=== PATIENT | female | born 1945 | race Caucasian/White ===

== ENCOUNTER 2016-06-07 20:03 | Day surgery (SDC) | payer MEDICARE ==
[2016-06-07] MEDS ORDERED: ONDANSETRON 4 MG/2ML 2 ML VIAL ONE (21:53)
[2016-06-07 22:24] LABS: ABSOLUTE NEUTROPHIL COUNT 10.7 K/mm3 (1.8-7.7); BASO % 0.1 % (0.2-1.0); EOS % 0.1 % (0.9-2.9); HEMATOCRIT 41.5 % (37.0-47.0); HEMOGLOBIN 13.8 gm/l (12.0-16.0); IMM NEUT # 0.1 K/mm3 (0-0.2); IMM NEUT% 0.4 % (0-1); LYMPH % 8.1 % (15-45); MEAN CELL VOLUME 95.6 fl (81.0-99.0); MEAN CORPUSCULAR HEMOGLOBIN 31.8 pg (27.0-31.0); MEAN CORPUSCULAR HGB CONC 33.3 g/dl (33.0-37.0); MEAN PLATELET VOLUME 10.2 fl (7.4-10.4); MONO # 0.5 (0.0-0.8); MONO % 3.7 % (4-12); NEUT % 87.6 % (43-75); PLATELET COUNT 237 K/mm3 (130-400); RED CELL DISTRIBUTION WIDTH 12.9 % (11.5-14.5)
[2016-06-07 22:48] LABS: ALB/GLOB RATIO 1.1 (>1.0); ALBUMIN 3.9 gm/dL (3.5-5.7); CALCIUM 10.1 mg/dL (8.6-10.3); MAGNESIUM 1.9 mg/dL (1.9-2.7)
[2016-06-07] MEDS ORDERED: MAALOX/LIDO2%VISC/SIMETHICONE 40 ML BOT ONE (23:45)
[2016-06-08 01:05] LABS: URINE APPEARANCE CLEAR; URINE BILIRUBIN NEGATIVE (NEGATIVE); URINE BLOOD NEGATIVE (NEGATIVE); URINE COLOR AMBER; URINE GLUCOSE (UA) NEGATIVE (NEGATIVE); URINE LEUKOCYTE ESTERASE NEGATIVE (NEGATIVE); URINE NITRITE NEGATIVE (NEGATIVE); URINE PROTEIN NEGATIVE (NEGATIVE); URINE UROBILINOGEN NORMAL (0-1 mg/dl)
[2016-06-08] MEDS ORDERED: ONDANSETRON 4 MG/2ML 2 ML VIAL ONE (02:12)
[2016-06-08] MEDS ORDERED: HYDROMORPHONE HCL 0.5 MG/0.5 ML SYRINGE ONE (02:12)
--- NOTE | 2016-06-08 07:21 | US ---
ABDOMINAL-LIMITED History: Diffuse abdominal pain with nausea and vomiting. Findings: Gallbladder: The gallbladder is not distended. There are multiple shadowing echogenic foci seen within the gallbladder lumen measuring up to 2.4 cm in size. Color wall thickening is also present. No pericholecystic fluid is visualized. A negative sonographic Sousa sign was elicited during the course of the exam. Biliary tree: The common hepatic duct measures 1.5 millimeters adjacent to the hepatic artery. Liver: the visualized liver is homogeneous. No masses or evidence of intra-hepatic biliary dilatation are seen. Impression: 1. Cholelithiasis with gallbladder wall thickening. Though acute or chronic cholecystitis cannot be excluded, no pericholecystic fluid is observed with a reported negative sonographic Sousa sign. No current biliary dilatation is observed. The findings were called to the emergency room at 0048 hours, 06/08/2016, by [facility] radiology.
[2016-06-08 07:39] VITALS: BMI 28.8
[2016-06-08] MEDS ORDERED: BLISTEX LIPSTICK 1 EACH TP PRN (07:51)
[2016-06-08] MEDS ORDERED: MENTHOL/CETYLPYRD 1 EACH LOZENGE PO PRN (07:51)
[2016-06-08] MEDS ORDERED: HYDROMORPHONE HCL 1 MG/ML SYRINGE IV PRN (07:51)
[2016-06-08] MEDS ORDERED: PUMP TUBING ONE (08:18)
[2016-06-08] MEDS: LACTATED RINGERS 1,000 ML IV SCH ×3 (08:23→21:33)
[2016-06-08] MEDS: HYDROMORPHONE HCL 0.5 MG/0.5 ML SYRINGE IV PRN ×4 (08:23→22:31)
[2016-06-08] MEDS: METRONIDAZOLE 500 MG/NS 100 ML 500 MG in Premix (D5W) 100 ml 1 EACH IV SCH ×3 (09:31→20:09)
[2016-06-08] MEDS: CIPROFLOXACIN IV 400 MG 400 MG in Premix (D5W) 200 ml 1 EACH IV SCH ×2 (10:23→21:33)
[2016-06-08 10:30] LABS: INR 1.06; PROTHROMBIN TIME 11.1 SECONDS (9.3-11.4)
[2016-06-08] MEDS: ONDANSETRON 4 MG/2ML 2 ML VIAL IV PRN ×2 (13:06→22:31)
[2016-06-08] MEDS ORDERED: METRONIDAZOLE 500 MG/NS 100 ML 100 ML IV ONE (20:03)
[2016-06-08] MEDS ORDERED: WATER FOR IRRIG,STERILE 500 ML BOT ONE (20:04)
[2016-06-09] MEDS: LACTATED RINGERS 1,000 ML IV SCH ×6 (01:49→22:19)
[2016-06-09] MEDS: METRONIDAZOLE 500 MG/NS 100 ML 500 MG in Premix (D5W) 100 ml 1 EACH IV SCH ×4 (01:49→19:35)
[2016-06-09] MEDS ORDERED: LACTATED RINGERS 500 ML IV ONE (03:07)
[2016-06-09 07:15] LABS: ALBUMIN 2.8 gm/dL (3.5-5.7); CALCIUM 8.8 mg/dL (8.6-10.3)
[2016-06-09] MEDS: HYDROMORPHONE HCL 0.5 MG/0.5 ML SYRINGE IV PRN ×3 (07:27→19:35)
[2016-06-09] MEDS ORDERED: TEMAZEPAM 15 MG CAPSULE PO PRN (08:34)
--- NOTE | 2016-06-09 08:49 | PDOC1 ---
HPI: Date of Admission: 06/08/16 (late entry seen 06/08/16 at 0700) Chief Complaint: Epigastric pain History of Present Illness: This is a 71 y/o F with abdominal pain in the epigastric area. It is similar to her reflux. Over the last week it has gotten worse. She has had some nausea as well but no vomiting. She hasn't necessarily noticed a correlation between food and the pain. She has chronic back pain that has been well controlled but over the last week it has increased in the mid back. She complains of some chills, but no fevers. No diarrhea. No sick contacts. No other symptoms. PMH: Depression, insomnia, chronic back pain, arthritis, HTN PSH: appendectomy, knee replacement and meniscus repair, hysterectomy, tonsillectomy MEdications: Please see the admission medication reconciliation (HCTZ, Metoprolol, gabapenten, potassium, Vitamins, sleep aids) Allergies: amoxillin, amitriptyline, percocet, benadryl Family history: Mother living at 96 has multiple heart stents SH: denies ETOH use, Tobacco use or illicit drug use - Review of Systems Reports Nausea, Reports Headache, Denies Chest Pain, Denies Shortness of Breath , Denies Cough, Denies Sputum, Denies Vomiting, Denies Diarrhea H&P Objective GS - Objective Vital Signs Temperature 98.9 F 06/09/16 07:09 Pulse Rate 83 06/09/16 07:09 Respiratory Rate 15 06/09/16 07:09 Blood Pressure 128/55 06/09/16 07:09 O2 Saturation by Pulse Oximetry 98 06/09/16 08:25 Oxygen Delivery Method Room Air Oxygen Flow Rate 0 Laboratory Results - last 24 hr 06/08/16 06/09/16 10:00 06:30 PT 11.1 INR 1.06 Sodium 138 Potassium 3.5 L Chloride 105 Carbon Dioxide 29 Anion Gap 8 BUN 16 Creatinine 0.5 L Estimated GFR 122 H BUN/Creatinine Ratio 32 H Glucose 115 H Calcium 8.8 Total Bilirubin 0.5 AST 62 H ALT 173 H Alkaline Phosphatase 102 Total Protein 5.5 L Albumin 2.8 L Globulin 2.7 Albumin/Globulin Ratio 1.0 Lipase 58 Intake and Output 06/07/16 06/08/16 06/09/16 23:59 23:59 23:59 Intake Total 2251 1900 Output Total 397 200 Balance 1854 1700 General: Alert, Oriented x3, Cooperative, No Acute Distress HEENT: Atraumatic, PERRLA, EOMI, Mucous membr. moist/pink Lungs: Clear to Auscultation Bilaterally, Normal Air Movement Cardiovascular: Regular Rate and Rhythm, Normal S1, Normal S2. negative: Murmur Abdomen: Soft, Tenderness (Epigastric and RUQ, quite tender, no peritoneal signs ), Non-Distended, Normal Bowel Sounds Extremities: Normal Cap Refill, Normal Pulses. negative: Edema Skin: Normal Color, Warm, Dry, Intact Wound: Dressing Clean/Dry/Intact Psych/Mental Status: Normal Affect, Normal Mood - Assessment/ Plan (1) Gallstone pancreatitis Current Visit: Yes Status: Acute Priority: High Diagnosis Date: Niurka needs the pancreatic inflammation to settle down before surgery. Will keep her NPO today and watch her and give her supportive care. She has thickened wall of the gallbladder with elevated WBC so I will give her ABX for presumed acute cholecystitis. Once the inflammation settles down we can take out her gallbladder. I explained all of this to her. I discussed why we cannot send her home and that she actually is quite sick. She understands. - Disposition to home after cholecystectomy - Procedure, Risks, Alternatives, Question PARQ: N/A () I discussed the procedure of (). We discussed risks including bleeding, infection, injury to the () and possible need to (). I addressed the (patient's/family's/caregiver's) concerns and questions. The (patient/family/caregiver) expressed understanding and willingness to proceed.
--- NOTE | 2016-06-09 08:51 | PDOC43 ---
- Subjective Subjective: Reports Flatus, Reports Pain Tolerable, Reports Bowel Movement, Reports Other (feels not urinating enough and urine is dark), Denies Vomitting, Denies Nausea - Objective Vital Signs Temperature 98.9 F 06/09/16 07:09 Pulse Rate 83 06/09/16 07:09 Respiratory Rate 15 06/09/16 07:09 Blood Pressure 128/55 06/09/16 07:09 O2 Saturation by Pulse Oximetry 98 06/09/16 08:25 Oxygen Delivery Method Room Air Oxygen Flow Rate 0 Laboratory 06/09/16 06:30 06/09/16 06:30 Estimated GFR 122 H AST 62 H ALT 173 H Total Protein 5.5 L Albumin 2.8 L Active Medication Orders Category Date Time Status Ciprofloxacin IV 400 mg [Cipro IV 400 mg] 400 mg Med 06/08/16 09:00 Active Premix (D5W) 200 ml 1 each IV Q12HR Gabapentin [Neurontin] Med 06/09/16 09:00 Active 300 mg PO BID Hydrochlorothiazide Med 06/09/16 09:00 Active 12.5 mg PO DAILY Hydromorphone HCl [Dilaudid] Med 06/08/16 07:51 Active 0.5 - 1 mg IV Q1H PRN Hydromorphone HCl [Dilaudid] Med 06/08/16 07:58 Active 0.5 - 1 mg IV Q1H PRN Lactated Ringers 1,000 ml Med 06/08/16 08:00 Active IV 150 mls/hr Lip [place] [Blistex] Med 06/08/16 07:51 Active 1 each TP PRN PRN Menthol/Cetylpyridinium [Cepacol] Med 06/08/16 07:51 Active 1 each PO PRN PRN Metronidazole 500 mg/Ns 100 ml [Flagyl 500 mg IV] 500 Med 06/08/16 08:00 Active mg Premix (D5W) 100 ml 1 each IV Q6H Ondansetron 4 mg/2ml Vial [Zofran] Med 06/08/16 07:51 Active 4 mg IV Q4H PRN Paroxetine [Paxil] Med 06/09/16 09:00 Ordered 10 mg PO DAILY Potassium Chloride [Potassium Chloride] Med 06/09/16 09:00 Ordered 20 meq PO DAILY Ranitidine HCl [Zantac 150 mg tablet] Med 06/09/16 09:00 Ordered 150 mg PO BID Sodium Chloride 0.9% Flush [Normal Saline 10ml Flush] Med 06/08/16 07:47 Active 10 ml IV PRN PRN Sodium Chloride 0.9% Flush [Normal Saline 10ml Flush] Med 06/08/16 09:00 Active 10 ml IV Q8HR Temazepam [Restoril] Med 06/09/16 08:34 Active 15 mg PO BEDTIME PRN Intake and Output 06/07/16 06/08/16 06/09/16 23:59 23:59 23:59 Intake Total 2251 1900 Output Total 397 200 Balance 1854 1700 General: Alert, Oriented x3, Cooperative, No Acute Distress HEENT: Atraumatic, PERRLA, EOMI, Mucous membr. moist/pink Lungs: Clear to Auscultation Bilaterally, Normal Air Movement Cardiovascular: Regular Rate and Rhythm, Normal S1, Normal S2, No Murmur Abdomen: Soft, Tenderness (tenderness still present although improved from yesterday), Non-Distended, Normal Bowel Sounds Skin: Normal Color, Warm, Dry, Intact, No Rash Psych/Mental Status: Normal Affect, Normal Mood - Assessment/ Plan (1) Gallstone pancreatitis Status: AcuteAssessment/ Plan: She needs the pancreatic inflammation to settle down before surgery. She still has tenderness today even though labs have improved. It at least doesn't look like she has a gallstone in her duct. Will keep her NPO today and watch her and give her supportive care. Continue ABX for presumed acute cholecystitis. Once the inflammation settles down we can take out her gallbladder. - Disposition to home after cholecystectomy
[2016-06-09] MEDS ORDERED: PAROXETINE 20 MG TABLET PO SCH (09:00)
[2016-06-09] MEDS: POTASSIUM CHLORIDE 20 MEQ TAB.PRT.SR PO SCH ×2 (09:32→09:36)
[2016-06-09] MEDS: CIPROFLOXACIN IV 400 MG 400 MG in Premix (D5W) 200 ml 1 EACH IV SCH ×2 (09:32→22:19)
[2016-06-09] MEDS: HYDROCHLOROTHIAZIDE 12.5 MG CAP PO SCH (09:32)
[2016-06-09] MEDS: GABAPENTIN 300 MG CAPSULE PO SCH ×3 (09:32→22:13)
[2016-06-09] MEDS: FAMOTIDINE 20 MG TABLET PO SCH ×3 (09:32→22:13)
[2016-06-09] MEDS: ONDANSETRON 4 MG/2ML 2 ML VIAL IV PRN ×2 (10:36→19:35)
[2016-06-09] MEDS ORDERED: [UNRECOGNIZED DRUG - OTHER] TP SCH (17:00)
[2016-06-09] MEDS: PAROXETINE 20 MG TABLET PO SCH (18:37)
[2016-06-09] MEDS ORDERED: METRONIDAZOLE 500 MG/NS 100 ML 100 ML IV ONE (19:30)
[2016-06-09] MEDS ORDERED: CLOBETASOL PROPIONATE 0.05% TP SCH (21:00)
[2016-06-10] MEDS: LACTATED RINGERS 1,000 ML IV SCH ×4 (02:33→15:52)
[2016-06-10] MEDS: METRONIDAZOLE 500 MG/NS 100 ML 500 MG in Premix (D5W) 100 ml 1 EACH IV SCH ×3 (02:38→15:52)
[2016-06-10 06:26] LABS: ALBUMIN 2.6 gm/dL (3.5-5.7); CALCIUM 8.5 mg/dL (8.6-10.3)
[2016-06-10] MEDS: HYDROMORPHONE HCL 0.5 MG/0.5 ML SYRINGE IV PRN (07:26)
[2016-06-10] MEDS: CIPROFLOXACIN IV 400 MG 400 MG in Premix (D5W) 200 ml 1 EACH IV SCH (09:11)
[2016-06-10] MEDS: ONDANSETRON 4 MG/2ML 2 ML VIAL IV PRN (09:19)
[2016-06-10] MEDS: HYDROCHLOROTHIAZIDE 12.5 MG CAP PO SCH (09:20)
[2016-06-10] MEDS: FAMOTIDINE 20 MG TABLET PO SCH (09:21)
[2016-06-10] MEDS: PAROXETINE 20 MG TABLET PO SCH (09:21)
[2016-06-10] MEDS: GABAPENTIN 300 MG CAPSULE PO SCH (09:21)
[2016-06-10] MEDS: POTASSIUM CHLORIDE 20 MEQ TAB.PRT.SR PO SCH (10:09)
[2016-06-10] MEDS: POTASSIUM CHLORIDE 40 MEQ in SODIUM CHLORIDE 0.9% 500 ML IV ONE ×2 (12:12→17:05)
--- NOTE | 2016-06-10 12:47 | PDOC43 ---
- Subjective Subjective: Reports Flatus, Reports Pain Tolerable, Reports Bowel Movement, Denies Vomitting, Denies Nausea - Objective Vital Signs Temperature 98.8 F 06/10/16 07:50 Pulse Rate 82 06/10/16 07:50 Respiratory Rate 16 06/10/16 07:50 Blood Pressure 122/63 06/10/16 07:50 O2 Saturation by Pulse Oximetry 95 06/10/16 07:50 Oxygen Delivery Method Room Air Oxygen Flow Rate 0 Laboratory 06/10/16 05:30 06/10/16 05:30 Estimated GFR 157 H Calcium 8.5 L ALT 104 H Total Protein 5.2 L Albumin 2.6 L Active Medication Orders Category Date Time Status Ciprofloxacin IV 400 mg [Cipro IV 400 mg] 400 mg Med 06/08/16 09:00 Active Premix (D5W) 200 ml 1 each IV Q12HR Famotidine [Pepcid] Med 06/09/16 09:00 Active 20 mg PO BID Gabapentin [Neurontin] Med 06/09/16 09:00 Active 300 mg PO BID Hydrochlorothiazide Med 06/09/16 09:00 Active 12.5 mg PO DAILY Hydromorphone HCl [Dilaudid] Med 06/08/16 07:51 Active 0.5 - 1 mg IV Q1H PRN Hydromorphone HCl [Dilaudid] Med 06/08/16 07:58 Active 0.5 - 1 mg IV Q1H PRN Lactated Ringers 1,000 ml Med 06/08/16 08:00 Active IV 150 mls/hr Lip [place] [Blistex] Med 06/08/16 07:51 Active 1 each TP PRN PRN Menthol/Cetylpyridinium [Cepacol] Med 06/08/16 07:51 Active 1 each PO PRN PRN Metronidazole 500 mg/Ns 100 ml [Flagyl 500 mg IV] 500 Med 06/08/16 08:00 Active mg Premix (D5W) 100 ml 1 each IV Q6H Non Formulary Drug Med 06/09/16 21:00 Pending 1 each TP BEDTIME Ondansetron 4 mg/2ml Vial [Zofran] Med 06/08/16 07:51 Active 4 mg IV Q4H PRN Paroxetine [Paxil] Med 06/09/16 18:15 Active 20 mg PO DAILY Potassium Chloride 40 meq Med 06/10/16 12:00 Active Sodium Chloride 0.9% 500 ml IV X1 Potassium Chloride [K-Dur] Med 06/09/16 09:00 Active 20 meq PO DAILY Sodium Chloride 0.9% Flush [Normal Saline 10ml Flush] Med 06/08/16 07:47 Active 10 ml IV PRN PRN Sodium Chloride 0.9% Flush [Normal Saline 10ml Flush] Med 06/08/16 09:00 Active 10 ml IV Q8HR Temazepam [Restoril] Med 06/09/16 08:34 Active 15 mg PO BEDTIME PRN Intake and Output 06/08/16 06/09/16 06/10/16 23:59 23:59 23:59 Intake Total 2251 2050 3851 Output Total 397 1000 200 Balance 1854 1050 3651 General: Alert, Oriented x3, Cooperative, No Acute Distress HEENT: Atraumatic, PERRLA, EOMI, Mucous membr. moist/pink Lungs: Clear to Auscultation Bilaterally, Normal Air Movement Cardiovascular: Regular Rate and Rhythm, Normal S1, Normal S2, No Murmur Abdomen: Soft, Non-Distended, Normal Bowel Sounds, No Tenderness Skin: Normal Color, Warm, Dry, Intact, No Rash Psych/Mental Status: Normal Affect, Normal Mood - Assessment/ Plan (1) Gallstone pancreatitis Status: AcuteAssessment/ Plan: Much improved. No real tenderness on exam Cholecystectomy today Explained risks/benefits/alternatives and answered her questions. She understands and wishes to proceed. Continue ABX for presumed acute cholecystitis. Once the inflammation settles down we can take out her gallbladder. - Disposition to home after cholecystectomy
[2016-06-10] MEDS ORDERED: DEXAMETHASONE SOD PHOS 4 MG/1 ML VIAL ONE (12:52)
[2016-06-10] MEDS ORDERED: FENTANYL 100 MCG/2 ML VIAL ONE ×2 (12:52→15:12)
[2016-06-10] MEDS ORDERED: ROCURONIUM BROMIDE 10 MG/ML DOSE IV ONE ×2 (12:52)
[2016-06-10] MEDS ORDERED: ONDANSETRON 4 MG/2ML 2 ML VIAL ONE (12:52)
[2016-06-10] MEDS ORDERED: MIDAZOLAM HCL 1 MG/ML 2ML VIAL ONE (12:52)
[2016-06-10] MEDS ORDERED: PROPOFOL 20 ML IV ONE (12:52)
[2016-06-10] MEDS ORDERED: LIDOCAINE 0.5%/EPI 1:200,000 (MULTIDOSE) 50 ML VIAL ONE (13:21)
[2016-06-10] MEDS ORDERED: LACTATED RINGERS 1,000 ML ONE (13:58)
[2016-06-10] MEDS ORDERED: IV START KIT ONE (13:59)
[2016-06-10] MEDS ORDERED: LIDOCAINE 2% (MULTI DOSE) 10 ML VIAL ONE (14:00)
[2016-06-10] MEDS ORDERED: FENTANYL 100 MCG/2 ML VIAL IV PRN (15:02)
[2016-06-10] MEDS ORDERED: MEPERIDINE 25 MG/ML SYRINGE IV PRN (15:02)
[2016-06-10] MEDS ORDERED: ONDANSETRON 4 MG/2ML 2 ML VIAL IV PRN ×2 (15:02→16:10)
[2016-06-10] MEDS ORDERED: HYDRALAZINE HCL 20 MG/1 ML VIAL IV PRN (15:02)
[2016-06-10] MEDS ORDERED: PROMETHAZINE HCL 25 MG/ML VIAL IM PRN (15:02)
[2016-06-10] MEDS ORDERED: NALOXONE HCL 0.4 MG/ML VIAL IV PRN (15:02)
[2016-06-10] MEDS ORDERED: LABETALOL HCL 5 MG/ML 20ML VIAL IV PRN (15:02)
[2016-06-10] MEDS ORDERED: ATROPINE SULFATE 0.4 MG/1 ML VIAL IV PRN (15:02)
[2016-06-10] MEDS ORDERED: HYDROMORPHONE HCL 1 MG/ML SYRINGE IV PRN ×2 (15:02→16:10)
[2016-06-10] MEDS ORDERED: LACTATED RINGERS 1,000 ML IV SCH ×2 (15:15→16:10)
[2016-06-10] MEDS ORDERED: GLYCOPYRROLATE 0.2 MG/ML 1ML VIAL ONE ×3 (15:22)
[2016-06-10] MEDS ORDERED: NEOSTIGMINE METHYLSULFATE 1 MG/ML DOSE ONE ×4 (15:22)
--- NOTE | 2016-06-10 15:34 | PCMBPN ---
Brief Post Op Note: Date of Procedure: 06/10/16 Start Time: 1500 Preoperative Diagnosis: 1. Gallstone pancreatitis and cholecystitis Postoperative Diagnosis: 1. Same Procedure: laparoscopic cholecystectomy Surgeon: Dottie Troy MD Assist:Shamika Perla Anesthesia: GETA Findings: See dictation Condition: stable Complications: none IV Fluids: see anesthesia report Urine Output: not recorded Estimated Blood Loss: 5 mLs Tourniquet Time: N/A Specimens: gallbladder Implants: n/a Drains: [N/A]
[2016-06-10] MEDS ORDERED: HYDROCODONE/ACETAMINOPHEN 5/325MG TABLET PO PRN (16:10)
[2016-06-10] MEDS ORDERED: HYDROMORPHONE HCL 0.5 MG/0.5 ML SYRINGE IV PRN (16:16)
[2016-06-10 19:12] VITALS: BP 134/62
--- NOTE | 2016-06-11 11:02 | OP ---
Mark Patino [id number] : 1945 DATE OF SERVICE: 06/10/2016 PREPROCEDURE DIAGNOSES: Gallstone pancreatitis and acute cholecystitis with cholelithiasis. POSTOPERATIVE DIAGNOSES: Gallstone pancreatitis and acute cholecystitis with cholelithiasis. PROCEDURE PERFORMED: Laparoscopic cholecystectomy. SURGEON: Dr. Dottie Troy. CORPORATE SALES REPRESENTATIVE: Shamika Perla. ANESTHESIA: General with endotracheal intubation. FINDINGS: A very inflamed gallbladder with a lot of adhesions and a lot of edema surrounding the gallbladder and a lot of fluid surrounding the gallbladder including purulent fluid. TECHNIQUE: The patient was brought back to the operating room and placed under general anesthesia. The abdomen was prepped and draped in sterile surgical fashion. Local anesthetic was placed to the right of the umbilicus and a 15 blade scalpel was used to make a less than 1 cm transverse incision. A 5 mm port was used to slowly enter the abdomen using the camera to watch the layers very carefully as we went and we had insufflation attached to the port so once we entered the peritoneal cavity the insufflation pushed the abdominal contents away. There was no damage to organs on entry. We switched to a 30 degree scope and then placed an 11 mm port subxiphoid and two 5 mm ports in the right upper quadrant under direct visualization. I grasped the gallbladder and pushed it superiorly and then used another grasper on the neck of the gallbladder for retraction and had to take some adhesions down from the gallbladder to even grasp the neck of the gallbladder. These were thickened and edematous. There was a little bit of oozing with it, but not a lot. I tried to grasp the adhesions close to the gallbladder, so these had a chronic and acute look to them when I was taking them down. Once I freed up the neck then we were able to grasp it and then dissect out the cystic duct, it actually was fairly clear to visualize and it went right into the gallbladder, there was no aberrant branching. It was very easy to tell that this was the actual cystic duct. We were well away from the common duct. Dissected it clear, placed two clips proximally and one distally and divided with EndoShears. Then I dissected surrounding tissue and the cystic artery was just behind the structure. No aberrant branching went right into the gallbladder, placed two distal clips, one distal clip and divided that with EndoShears. There was no other branching or any other structures behind the cystic artery and then I was able to use a hook cautery to remove the gallbladder from the liver bed. I took care of hemostasis as I went. There was no real oozing or bleeding from the liver bed as I went and once the gallbladder was almost off the liver bed I examined the area where the clips were and examined liver bed again and everything looked nice and dry. I used some suction to clear out the fluid around the liver bed and around the site of liver. I irrigated a little bit as well. Then I placed the gallbladder in an Endocatch bag and pulled it out of the subxiphoid port site. After I pulled that out, I placed a Shahid Arely into the subxiphoid port and used that with a 0 Vicryl to close the fascia. Once that was secured there was no fascial defect. The muscle and fascia were closed and then removed the other port site. No active oozing or bleeding with the port site removal. We then closed the skin incisions with 4-0 Monocryl. Steri-Strips were applied and the patient was awakened and returned to recovery room in stable condition. All needle, instrument, and sponge counts were correct at the end of the case. JOB: [id number]
--- NOTE | 2016-06-15 14:08 | SURGPATH ---
[facility] [address] [place] [id number] Patient Name: ADELINA KIMBLE MR#: [id number] : 1945 Gender: F Specimen #: [id number] Collected: 06/10/2016 Received: 06/14/2016 Reported: 06/15/2016 Submitting Phys: LAY ESPINAL Copy To Phys: [facility] BRIGITTE MOTA Clinical History / Pre-Operative Diagnosis: CHOLEDOCHOLITHIASIS Specimen Source / Surgical Procedure Performed: GALLBLADDER Interpretation: GALLBLADDER, CHOLECYSTECTOMY: - MINIMAL CHRONIC CALCULOUS CHOLECYSTITIS Electronically Signed Out Kat Rodriguez M.D. Gross Description: The specimen is received in a formalin filled container labeled with the patient's name and "gallbladder". An intact engorged gallbladder is 8.5 x 3.5 cm. The serosa is smooth and broussard green. The wall averages 0.2 cm. The mucosa is light green and velvety. There is no nodule or induration. The lumen contains a copious amount of thick, dark green bile and multiple irregular yellow-loving calculi up to 1.5 cm. Three client representative sections are submitted in one cassette including a cross section through the cystic duct surgical margin, a central cross section and a longitudinal section through the fundus. Magy Rodriguez Microscopic Description: Normal thickness gallbladder is seen with rare Rokitansky-Aschoff sinuses. No acute inflammation is seen. No dysplasia or carcinoma is seen. 1: [id number] K80.20
== END 2016-06-10 15:46 ==
LOC: ED 20:03 → MS 06-08 03:55 → SDC 06-08 03:55 → UNDOADMIN 06-08 03:55 → MS 06-08 03:55 → SDC 06-10 15:46 → UNDODISIN 06-10 20:51
PROVIDERS: ATTEND Surgery
PROC: 0FT44ZZ Resection of Gallbladder, Percutaneous Endoscopic Approach (ICD-10-PCS; principal; 2016-06-10)
DX: K80.01 Calculus of gallbladder with acute cholecystitis with obstruction (principal); K85.10 Biliary acute pancreatitis without necrosis or infection; F32.9 Major depressive disorder, single episode, unspecified; G47.00 Insomnia, unspecified; M54.9 Dorsalgia, unspecified; G89.29 Other chronic pain; M19.90 Unspecified osteoarthritis, unspecified site; I10 Essential (primary) hypertension; Z79.899 Other long term (current) drug therapy
CPT/HCPCS: 83605; 83690 ×3; 85025; 80053 ×3; 83735; 85610; 81003; 84484; 36415 ×2; 76705; 96375; 99285 ×2; 96374; 96361 ×2; 47562; J0744 ×3; J3010 ×2; A9270 ×12; J1100; J3480; J2250; J2405 ×8; J7120 ×8; J7040; J1170 ×9; J2001